=== PATIENT | female | born 1985 | race Caucasian/White ===

== ENCOUNTER 2017-10-03 08:53 | Emergency (ER) | payer OTHER, MEDICAID ==
[~2017-10-03] VITALS: Ht 157.5 cm; Wt 90.7 kg
[~2017-10-03 08:53] MED LIST: ALBUTEROL INHAL17 GM IH; FAMOTIDINE PO; FLUZONE 2045 MCG/011; MEDROLDOSEPACK PO; MIRENA; NOHOMEMEDICATIONS; PNEUMOVAX25 MCG/0.5; PROMETHAZINE-C120 ML; VICODIN 5-5001 EACH PO; VICODIN PO
[2017-10-03] MEDS ORDERED: FLEXERIL PO (09:27)
[2017-10-03] MEDS ORDERED: NORCO 5-325 TA1 EACH PO (09:27)
[2017-10-03 09:40] VITALS: BP 96/62
== END 2017-10-03 09:44 | disposition home or self-care (01) ==
LOC: M.ERS 08:53
DX: M54.6 Pain in thoracic spine (principal)

== ENCOUNTER 2019-05-27 12:57 | Inpatient (IN) | payer OTHER ==
[~2019-05-27] VITALS: Ht 160 cm; Wt 96.3 kg
--- NOTE | ~2019-05-27 | EKG ---
[place] [address] ELECTROCARDIOGRAM REPORT Name: DENISSE HARRIS Room: [facility]#: [id number] Admission: 05/27/19 Attend Phys: Discharge: Date of : 81 Date of Service: 05/27/19 1303 Report #: [id number] THIS REPORT FOR: cc: PUSHPA - [place] family physician/PCP PUSHPA - No family physician/PCP Isabel Hall MD ~ THIS REPORT FOR: //name// [facility] ED Test Date: 2019-05-27 Test Time: 13:03:34 Pat Name: DENISSE HARRIS Department: Room: Gender: F Paleobotanist: PATRICIA : 1985 Requested By: Paul Snow Order Number: [id number] MD: Measurements Intervals [place] Rate: 79 P: 36 MN: 160 QRS: 38 QRSD: 86 T: 28 QT: 386 QTc: 443 Interpretive Statements Sinus rhythm Compared to ECG 05/20/2011 08:57:18 No significant changes [email or web address] By: 130 1303 Epiphany Epiphany, /EPI
[~2019-05-27 12:57] MED LIST changes: +FLEXERIL PO; +NORCO 5-325 TA1 EACH PO
[2019-05-27 13:06] VITALS: BP 113/55
[2019-05-27 13:37] LABS: ABSOLUTE EOSINOPHILS 0.1 thou/uL (0.0-0.7); ABSOLUTE LYMPHOCYTES 0.8 thou/uL (0.8-5.3); ABSOLUTE MONOCYTES 0.4 thou/uL (0.0-1.2); ABSOLUTE NEUTROPHILS 5.5 thou/uL (1.6-8.1); BASOPHILS 0.3 %; EOSINOPHILS 1.4 %; HEMATOCRIT 39.7 % (37.0-47.0); HEMOGLOBIN 13.9 gm/dL (12.0-15.0); LYMPHOCYTES 11.6 %; MCH 30.3 pg (26.0-34.0); MCV 86.7 fL (80.0-100.0); MONOCYTES 5.3 %; MPV 8.1 fl. (7.2-11.1); NUCLEATED RBCS 0 /100WBC; PLATELET COUNT* 223 thou/uL (150-400); POLYS 81.4 %; RBC 4.58 mil/uL (4.20-5.00); RDW-CV 13.3 % (10.5-14.5); WBC 6.8 thou/uL (4.0-11.0)
[2019-05-27 13:45] LABS: CREATININE 0.8 mg/dL (0.6-1.3); POTASSIUM 4.5 mmol/L (3.5-5.1); PROTIME 10.6 Seconds (9.20-11.50)
[2019-05-27 13:49] LABS: ALBUMIN 3.8 g/dL (3.4-5.0); TOTAL BILIRUBIN 0.6 mg/dL (<0.1-1.0); TOTAL PROTEIN 7.3 g/dL (6.4-8.2)
[2019-05-27 17:00] VITALS: BP 118/59; BP 119/55
--- NOTE | 2019-05-27 18:50 | NUR ---
RECEIVED REPORT FROM ER NURSE ABDULLAHI. PT ARRIVED TO TELE FLOOR AROUND 1700. PT A&O X4. ADMISSION ASSESSMENT, HISTORY AND EDUCATION COMPLETED CHARTED. PT ORIENTED TO ROOM, BED AND CALL LIGHT- PT COMMUNICATES UNDERSTANDING. FAMILY AT BEDSIDE. NIH CHARTED. PT PASSED BESIDE SWALLOW SCREEN. PT NAUSEATED THIS EVENING, RECEIVED IV MEDICATION WITH RELIEF. PT REPORTED HEADACHE AND RECIEVED PO PAIN MEDICATION WITH PARTIAL RELIEF. PT CURRENTLY RESTING IN BED. CALL LIGHT IS WITHIN REACH. HOURLY ROUNDING PERFORMED. LOW FALL RISK PRECAUTIONS IN PLACE.
[2019-05-27 20:00] VITALS: BP 87/66
[2019-05-28] VITALS (10 sets, daily range): BP systolic 93–117; BP diastolic 40–59
--- NOTE | 2019-05-28 03:25 | NUR ---
PT ALERT ORIENTED. NIHSS 0. TYLENOL GIVEN FOR HEAD ACHE. TELEMETRY SHOWS SR. WILL CONTINUE TO MONITOR.
[2019-05-28 05:33] LABS: ALBUMIN 3.2 g/dL (3.4-5.0); ALKALINE PHOSPHATASE 49 U/L (46-116); ANION GAP 7 mmol/L (7-16); BUN 9 mg/dL (7-18); CALCIUM 7.8 mg/dL (8.5-10.1); CHLORIDE 106 mmol/L (98-107); CHOLESTEROL 135 mg/dL (<200); CO2 26 mmol/L (21-32); CREATININE 0.8 mg/dL (0.6-1.3); GLUCOSE 103 mg/dL (70-99); HDL CHOLESTEROL 52 mg/dL (>40); LDL CHOLESTEROL 72 mg/dL (<100); POTASSIUM 3.6 mmol/L (3.5-5.1); SGOT 18 U/L (15-37); SGPT 27 U/L (30-65); SODIUM 139 mmol/L (136-145); TC:HDL 2.6 Ratio (Not establshd); TOTAL BILIRUBIN 0.5 mg/dL (<0.1-1.0); TOTAL PROTEIN 6.6 g/dL (6.4-8.2); TRIGLYCERIDE 56 mg/dL (<150); VLDL 11 mg/dL (<40)
[2019-05-28 05:35] LABS: SERUM ASSESSMENT Clear
--- NOTE | 2019-05-28 11:50 | NUR ---
CM ASSESSMENT: VISITED WITH PT IN ROOM. PT LIVES AT HOME WITH AND CHILDREN. SHE WORKS A STRATEGIC PLANNING DIRECTOR.SHE DOES NOT HAVE A PCP OR INSURANCE AT THIS TIME. INDEPENDENT. DENIES NEED FOR HH OR DME. PT GIVEN CONTACT INFO FOR THE [facility] [employer] [employer] DEV[employer] DEPT TO APPLY FOR MEDICAID. PT ENCOURAGED TO FIND A PCP.
[2019-05-28] MEDS ORDERED: LORATIDINE 10 M10 M1 PO (11:53)
[2019-05-28] MEDS ORDERED: FLONASE 0.05%50 MCG NASAL (11:54)
[2019-05-28] MEDS ORDERED: ASA81BEC PO (11:55)
[2019-05-28] MEDS ORDERED: TYLENOL325 MG PO (11:56)
--- NOTE | 2019-05-28 16:21 | NUR ---
ASSUMED CARE OF PATIENT THIS AM AT 0730. PATIENT IS ALERT AND ORIENTED X 4. SHE C/O A HEADACHE THIS AM. PATIENT GIVEN PO TYLENOL WITHOUT RELIEF. DR NOTIFIED AND ORDERS GIVEN. PATIENT GIVEN IV TORADOL X 1 AND STARTED ON ALLERGY MEDICATION. PATIENT WAS UP IN THE HALLS WITH PT THIS AFTERNOON AND SHE C/O RETURNING NAUSEA AND DIZZINESS. DR NOTIFIED AND ORDERS GIVEN. ORTHOSTATIC VS TAKEN AND IV FLUID BOLUS STARTED. DR THOMAS CONTACTED AND PATIENT'S C/O DIZZINESS AND NAUSEA REPORTED. DR THOMAS CONFIRMED THAT PATIENT WAS ABLE TO DISCHARGE. PATIENT STATED THAT HER HEADACHE WAS RELIEVED AFTER INTERVENTIONS. TELE HAS SHOWN SR TO SB TODAY. NO EMESIS NOTED. PATIENT'S BP CONTINUES LOW BUT STABLE. NO FALLS OR INJURY.
[2019-05-28] MEDS ORDERED: SUMATRIPTAN SU100 MG PO (17:07)
[2019-05-28] MEDS ORDERED: NAPROSYN500 MG PO (17:26)
[2019-05-28] MEDS ORDERED: METRONIDAZOLE500 M4 PO (17:27)
[2019-05-29 02:10] LABS: GLYCOHEMOGLOBIN (HGB A1C) 5.1 % (4.8-5.6)
== END 2019-05-28 18:40 | disposition home or self-care (01) | DRG 103 ==
LOC: M.ERS 12:57 → M.2W 14:27 → M.TBA-ER 14:27 → M.2W 17:06
PROVIDERS: Emergency Medicine Emergency Medical Services; ADMIT Internal Medicine
DX: G43.409 Hemiplegic migraine, not intractable, without status migrainosus (principal); G81.94 Hemiplegia, unspecified affecting left nondominant side; F41.9 Anxiety disorder, unspecified; R29.810 Facial weakness; J30.2 Other seasonal allergic rhinitis; Z79.899 Other long term (current) drug therapy; Z87.01 Personal history of pneumonia (recurrent); Z83.3 Family history of diabetes mellitus